=== PATIENT | male | born 1990 | race Caucasian/White ===

== ENCOUNTER 2018-12-07 08:21 | Emergency (ER) | payer OTHER ==
[2018-12-07] MEDS ORDERED: IBUPROFEN 800 MG TABLET PO STA (09:19)
--- NOTE | 2018-12-07 09:20 | ED Physician Documentation ---
History of Present Illness - Stated complaint Stated Complaint: FLU LIKE SX - Chief complaint Chief Complaint: General - History obtained from History obtained from: Patient - History of Present Illness Timing: Yesterday Pain level max: 5 Pain level now: 4 - Additonal information Additional information: 28-year-old male presents to the emergency department with body aches, sore throat, nasal congestion and coughing since yesterday. Has not taken anything for this. Came for evaluation today. No fevers. Nothing makes it better or worse. Review of Systems Constitutional: denies: Fever GI: denies: Vomiting, Diarrhea Skin: denies: Rash Musculoskeletal: denies: Neck pain, Back pain PD PAST MEDICAL HISTORY - Past Medical History Past Medical History: No - Past Surgical History Past Surgical History: No - Present Medications Home Medications: Ambulatory Orders Medication Instructions Recorded Confirmed No Known Home Medications 12/07/18 12/07/18 - Allergies Allergies/Adverse Reactions: Allergies Allergy/AdvReac Type Severity Reaction Status Date / Time No Known Drug Allergies Allergy Verified 12/07/18 08:30 - Social History Does the pt smoke?: No Smoking Status: Never smoker Does the pt have substance abuse?: No PD ED PE NORMAL - Vitals Vital signs reviewed: Yes - General General: Alert and oriented X 3, No acute distress, Well developed/nourished - HEENT HEENT: PERRL, Ears normal, Moist mucous membranes, Other (Moderate posterior oropharyngeal erythema with tonsillar exudates. Uvula midline. Normal phonation. No trismus) - Neck Neck: Supple, no meningeal sign, No adenopathy - Cardiac Cardiac: RRR, Strong equal pulses - Respiratory Respiratory: No respiratory distress, Clear bilaterally - Abdomen Abdomen: Soft, Non tender, Non distended - Derm Derm: Warm and dry, No rash - Extremities Extremities: No edema - Neuro Neuro: Alert and oriented X 3 - Psych Psych: Normal mood, Normal affect Results - Vitals Vitals: Vital Signs - 24 hr 12/07/18 12/07/18 08:29 10:01 Temperature 36.6 C Heart Rate 90 88 Respiratory 16 18 Rate Blood Pressure 130/89 H 135/92 H O2 Saturation 98 Oxygen O2 Source Room air - Labs Labs: Laboratory Tests 12/07/18 12/07/18 08:32 09:11 Influenza A (Rapid) Negative Influenza B (Rapid) Negative Group A Strep Rapid Negative PD MEDICAL DECISION MAKING - ED course Complexity details: reviewed results, re-evaluated patient, considered differential, d/w patient ED course: 28-year-old male with what appears to be a viral syndrome. Flu swab is n egative. Strep swab is negative. Well-appearing, nontoxic. We will continue supportive care and follow-up with his doctor. Patient counseled regarding signs and symptoms for which I believe and urgent re-evaluation would be necessary. Patient with good understanding of and agreement to plan and is comfortable going home at this time This document was made in part using voice recognition software. While efforts are made to proofread this document, sound alike and grammatical errors may occur. Departure - Departure Disposition: 01 Home, Self Care Clinical Impression: Viral syndrome Condition: Good Instructions: ED Viral Syndrome Follow-Up: your,doctor in 1 week if not better [Other] Comments: Return if you worsen. Your rapid strep test as well as influenza tests are negative today. Go home, rest and drink plenty of fluids. You can use Motrin or Tylenol as needed for pain and fever. Forms: Activity restrictions Discharge Date/Time: 12/07/18 10:01
[2018-12-07 10:01] VITALS: BP 135/92
== END 2018-12-07 10:01 | disposition home or self-care (01) ==
LOC: ED 08:21
DX: B34.9 Viral infection, unspecified (principal); J02.9 Acute pharyngitis, unspecified
CPT/HCPCS: 87070; 87275; 87276; 87430; 99282; 99283; A9270